=== PATIENT | female | born 1945 | race Caucasian/White ===

== ENCOUNTER 2018-01-12 13:27 | Emergency (ER) | payer MEDICARE, OTHER ==
--- NOTE | 2018-01-12 14:09 | ED Physician Documentation ---
PD HPI LOWER EXT INJURY - Stated complaint Stated Complaint: FT SWOLLEN - Chief complaint Chief Complaint: Ext Problem - History obtained from History obtained from: Patient - History of Present Illness PD HPI LOW EXT INJURY LOCATION: Both, Lower leg (has swelling and some cramping of both legs, and some pain left lower thigh. Had flown here couple weeks ago and flying home tomorrow. Concerned for DVT or heart failure.), Ankle Type of injury: No: Fall, Twist Timing - onset: How many weeks ago (1) Timing - duration: Weeks (1) Timing - details: Gradual onset Worsened by: No: Moving, Palpating Associated symptoms: Swelling. No: Weakness, Numbness Similar symptoms before: Has not had sx before (denies change in diet nor high salt foods.) Recently seen: Not recently seen Review of Systems Constitutional: denies: Fever, Chills Nose: denies: Rhinorrhea / runny nose, Congestion Throat: denies: Sore throat Cardiac: reports: Pedal edema, Calf pain (left thigh/calf). denies: Chest pain / pressure, Palpitations Respiratory: denies: Dyspnea (no orthopnea), Cough GI: denies: Abdominal Pain, Nausea, Vomiting, Diarrhea, Bloody / black stool : denies: Dysuria, Frequency Skin: denies: Rash, Lesions Musculoskeletal: denies: Back pain PD PAST MEDICAL HISTORY - Past Medical History Cardiovascular: Hypertension Endocrine/Autoimmune: HyPOthyroidism : None Psych: Depression - Past Surgical History Past Surgical History: Yes General: Cholecystectomy, Splenectomy Ortho: Knee replacement HEENT: Cataracts - Present Medications Home Medications: Ambulatory Orders Medication Instructions Recorded Confirmed Danazol 200 mg PO DAILY 10/12/14 10/19/15 Escitalopram [Lexapro] 10 mg PO DAILY 10/12/14 10/19/15 Levothyroxine [Synthroid] 25 mcg PO DAILY 10/12/14 10/19/15 Metoprolol Tartrate [Lopressor] 25 mg PO DAILY 10/12/14 10/12/14 Pramipexole [Mirapex] 1 mg PO TID 10/19/15 10/19/15 Carbidopa/Levodopa [Carbidopa-Levo 01/12/18 ER 25-100 Tab] DULoxetine [Cymbalta] 01/12/18 Furosemide [Lasix] 20 mg PO DAILY #5 tablet 01/12/18 Omeprazole 01/12/18 Potassium Chloride 10 meq PO DAILY #10 tablet.er 01/12/18 - Allergies Allergies/Adverse Reactions: Allergies Allergy/AdvReac Type Severity Reaction Status Date / Time aspirin Allergy Mild Nausea Verified 01/12/18 13:43 codeine Allergy Unknown Verified 10/12/14 13:26 naproxen sodium * Allergy Unknown Verified 10/12/14 13:26 [From Aleve] NSAIDS (Non-Steroidal Allergy Unknown Verified 10/12/14 13:26 Anti-Inflamma Penicillins Allergy Unknown Verified 10/12/14 13:26 rofecoxib [From Vioxx] Allergy Unknown Verified 10/12/14 13:26 Sulfa (Sulfonamide Allergy Unknown Verified 10/12/14 13:27 Antibiotics) anionophyllin Allergy Unknown Uncoded 10/12/14 13:28 nuts adn peanuts Allergy Unknown Uncoded 10/12/14 13:27 vit K Allergy Rash Uncoded 10/12/14 13:26 - Social History Does the pt smoke?: No Smoking Status: Never smoker Does the pt drink ETOH?: No Does the pt have substance abuse?: No - POLST Patient has POLST: No PD ED PE NORMAL - Vitals Vital signs reviewed: Yes - General General: Alert and oriented X 3, No acute distress, Well developed/nourished - HEENT HEENT: Pharynx benign - Neck Neck: Supple, no meningeal sign, No adenopathy, No JVD - Cardiac Cardiac: RRR, No murmur - Respiratory Respiratory: Clear bilaterally - Abdomen Abdomen: Soft, Non tender, Other (obese) - Back Back: No CVA TTP - Derm Derm: Normal color, Warm and dry - Extremities Extremities: No deformity, No tenderness to palpate, No calf tenderness / cord, Other (1+ edema to right leg, 2+ at left ankle. ) - Neuro Neuro: Alert and oriented X 3, No motor deficit, No sensory deficit, Normal speech Results - Vitals Vitals: Vital Signs - 24 hr 01/12/18 01/12/18 13:35 16:29 Temperature 36.7 C Heart Rate 106 H 97 Respiratory 18 16 Rate Blood Pressure 164/94 H 151/90 H O2 Saturation 100 98 Oxygen O2 Source Room air - Labs Labs: Laboratory Tests 01/12/18 01/12/18 01/12/18 14:30 14:30 14:30 WBC 7.3 RBC 4.27 Hgb 14.9 Hct 44.5 MCV 104.3 H MCH 35.0 H MCHC 33.5 RDW 14.9 Plt Count 260 MPV 8.7 Neut # (Auto) 5.4 Lymph # (Auto) 1.1 L [place] # (Auto) 0.6 Eos # (Auto) 0.2 Baso # (Auto) 0.1 Absolute Nucleated RBC 0.00 Nucleated RBC % 0.1 Sodium 140 Potassium 3.6 Chloride 103 Carbon Dioxide 29 Anion Gap 8.0 BUN 13 Creatinine 1.1 H Estimated GFR (MDRD) 49 L Glucose 125 H Calcium 9.6 Magnesium 1.7 Total Bilirubin 0.5 AST 38 ALT 22 Alkaline Phosphatase 60 B-Natriuretic Peptide 27 Total Protein 6.9 Albumin 3.7 Globulin 3.2 Albumin/Globulin Ratio 1.2 Lipase 41 - Rads (name of study) duplex both legs Radiology: Prelim report reviewed (no DVT) PD MEDICAL DECISION MAKING - ED course Complexity details: reviewed results (no DVT, BNP and Creatinine are good. Lytes are good, though low normal K. Will supplement K and give short course diuretic. To see PMD when back home. ), considered differential (consider renal insuff, CHF, DVT or just dependent edema. ), d/w patient - Sepsis Event Vital Signs: Vital Signs - 24 hr 01/12/18 01/12/18 13:35 16:29 Temperature 36.7 C Heart Rate 106 H 97 Respiratory 18 16 Rate Blood Pressure 164/94 H 151/90 H O2 Saturation 100 98 Oxygen O2 Source Room air Departure - Departure Disposition: 01 Home, Self Care Clinical Impression: Edema of both legs Condition: Stable Record reviewed to determine appropriate education?: Yes Instructions: ED Edema Legs Bilateral Prescriptions: Furosemide [Lasix] 20 mg PO DAILY #5 tablet Potassium Chloride 10 meq PO DAILY #10 tablet.er Comments: No signs of blood clots on ultrasound. Your basic blood tests appear okay. Presume there is just some fluid retention. We can treat this with an added potassium supplement and water pill (diuretic) over the next few days. Follow- up with your primary care at home if not improved. Discharge Date/Time: 01/12/18 16:30
[2018-01-12 14:34] LABS: BASOPHILS # (AUTO) 0.1 10^3/uL (0.0-0.1); BASOPHILS % (AUTO) 0.7 %; EOSINOPHILS # (AUTO) 0.2 10^3/uL (0.0-0.7); EOSINOPHILS % (AUTO) 3.2 %; HGB - HEMOGLOBIN 14.9 g/dL (12.0-16.0); LYMPHOCYTES # (AUTO) 1.1 10^3/uL (1.5-3.5); LYMPHOCYTES % (AUTO) 15.1 %; MEAN CORPUSCULAR HGB CONC 33.5 g/dL (32.0-36.0); MEAN CORPUSCULAR VOLUME 104.3 fL (81.0-99.0); MEAN PLATELET VOLUME 8.7 fL (7.9-10.8); MONOCYTES # (AUTO) 0.6 10^3/uL (0.0-1.0); MONOCYTES % (AUTO) 7.9 %; NEUTROPHILS # (AUTO) 5.4 10^3/uL (1.5-6.6); NEUTROPHILS % (AUTO) 73.1 %; PLT - PLATELET COUNT 260 10^3/uL (130-450); RED BLOOD COUNT 4.27 10^6/uL (4.20-5.40); RED CELL DISTRIBUTION WIDTH 14.9 % (12.0-15.0); WHITE BLOOD COUNT 7.3 x10^3/uL (4.8-10.8)
[2018-01-12 14:48] LABS: ALBUMIN 3.7 g/dL (3.2-5.5); ALBUMIN/GLOBULIN RATIO 1.2 (1.0-2.2); BILIRUBIN,TOTAL 0.5 mg/dL (0.2-1.0); CALCIUM 9.6 mg/dL (8.5-10.3); CREATININE 1.1 mg/dL (0.4-1.0); MAGNESIUM 1.7 mg/dL (1.7-2.8); TOTAL PROTEIN 6.9 g/dL (6.7-8.2)
--- NOTE | 2018-01-12 15:50 | Ultrasound Report ---
Procedure Date: 01/12/2018 Accession Number: [id number] / [id number] Procedure: US - Duplex Ext Veins Bilateral CPT Code: FULL RESULT: EXAM: BILATERAL LOWER EXTREMITY VENOUS ULTRASOUND EXAM DATE: 01/12/2018 03:36 PM. CLINICAL HISTORY: Leg edema; flew here December 28. COMPARISON: Right lower extremity venous ultrasound 10/19/2015. TECHNIQUE: Real-time sonographic vascular imaging was performed by the photoengraving photographer through the lower extremities utilizing both color-flow and Doppler spectral analysis. Multiple automotive sales representative static images were saved for review. FINDINGS: Right: Common Femoral Vein (CFV): Normal. CFV-GSV Junction: Normal. Profunda Femoral Vein (PFV): Normal. Femoral Vein (FV) Prox: Normal. Femoral Vein (FV) Mid: Normal. Femoral Vein (FV) Dist: Normal. Popliteal Vein: Normal. Posterior Tibial Veins: Normal. Peroneal Veins: Normal. Left: Common Femoral Vein (CFV): Normal. CFV-GSV Junction: Normal. Profunda Femoral Vein (PFV): Normal. Femoral Vein (FV) Prox: Normal. Femoral Vein (FV) Mid: Normal. Femoral Vein (FV) Dist: Normal. Popliteal Vein: Normal. Posterior Tibial Veins: Normal. Peroneal Veins: Normal. Other: None. IMPRESSION: No evidence for deep venous thrombosis bilaterally. RADIA
[2018-01-12] MEDS ORDERED: POTASSIUM BICARB 25 MEQ TABLET PO STA (16:02)
[2018-01-12] MEDS ORDERED: FUROSEMIDE 20 MG TABLET PO STA (16:02)
[2018-01-12 16:31] VITALS: BP 151/90
== END 2018-01-12 16:30 | disposition home or self-care (01) ==
LOC: ED 13:27
DX: R60.0 Localized edema (principal); I10 Essential (primary) hypertension; E03.9 Hypothyroidism, unspecified; Z96.659 Presence of unspecified artificial knee joint; Z90.81 Acquired absence of spleen
CPT/HCPCS: 36415; 80053; 83690; 83735; 83880; 85025; 93970; 99283; A9270

== ENCOUNTER 2019-03-15 20:36 | Emergency (ER) | payer MEDICARE, OTHER ==
[2019-03-15 22:59] VITALS: BP 126/58
--- NOTE | 2019-03-16 00:31 | ED Physician Documentation ---
History of Present Illness - Stated complaint Stated Complaint: BILAT LEG SWELLING/NUMB/FINGER NUMBNESS - Chief complaint Chief Complaint: Trauma Ext - History obtained from History obtained from: Patient, Family - History of Present Illness Timing: How many days ago (4) - Additonal information Additional information: 73-year-old female visiting [facility] for her mother's 98th birthday has developed swelling in both of her ankles. She states that she has called her primary care doctor back home has been prescribed some additional Lasix and this does not seem to be helping. When asked the question about where she is sleeping she is sleeping in chair and she is sleeping with her legs dependent. She has had similar issue the last time that she was visiting in the summer back in January of last year. Review of Systems Constitutional: denies: Fever Eyes: denies: Decreased vision Ears: denies: Ear pain Nose: denies: Congestion Throat: reports: Oral lesions / sores. 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 - Past Surgical History Past Surgical History: Yes General: Cholecystectomy, Gastric surgery, Splenectomy Ortho: Knee replacement HEENT: Cataracts - Present Medications Home Medications: Ambulatory Orders Medication Instructions Recorded Confirmed Escitalopram [Lexapro] 10 mg PO DAILY 10/12/14 10/19/15 Carbidopa/Levodopa [Carbidopa-Levo BID 01/12/18 ER 25-100 Tab] Furosemide [Lasix] 20 mg PO DAILY #5 tablet 01/12/18 RX: DULoxetine [Cymbalta] 30 mg PO DAILY 01/12/18 Esomeprazole Magnesium [Nexium] 03/15/19 Levocetirizine Dihydrochloride 03/15/19 [Xyzal] Mirabegron [Myrbetriq] 50 mg PO DAILY 03/15/19 03/15/19 Multivitamin/Iron/Folic Acid QPM 03/15/19 [Centrum Women Tablet] RX: Carvedilol 12.5 mg PO BID 03/15/19 03/15/19 RX: Levothyroxine [Synthroid] 88 mcg PO DAILY 03/15/19 03/15/19 RX: Pramipexole Di-HCl [Mirapex] 1 mg PO BID 03/15/19 03/15/19 RX: amLODIPine [Norvasc] 5 mg PO QPM 03/15/19 03/15/19 RX: Nystatin 400,000 unit PO TID #100 ml 03/16/19 - Allergies Allergies/Adverse Reactions: Allergies Allergy/AdvReac Type Severity Reaction Status Date / Time aspirin Allergy Mild Nausea Verified 03/15/19 21:22 codeine Allergy Unknown Verified 03/15/19 21:22 naproxen sodium * Allergy Unknown Verified 03/15/19 21:22 [From Aleve] NSAIDS (Non-Steroidal Allergy Unknown Verified 03/15/19 21:22 Anti-Inflamma Penicillins Allergy Unknown Verified 03/15/19 21:22 rofecoxib [From Vioxx] Allergy Unknown Verified 03/15/19 21:22 Sulfa (Sulfonamide Allergy Unknown Verified 03/15/19 21:22 Antibiotics) anionophyllin Allergy Unknown Uncoded 03/15/19 21:22 nuts adn peanuts Allergy Unknown Uncoded 03/15/19 21:22 vit K Allergy Rash Uncoded 03/15/19 21:22 - Social History Does the pt smoke?: No Smoking Status: Never smoker Does the pt drink ETOH?: No Does the pt have substance abuse?: No - Immunizations Immunizations are current?: Yes - POLST Patient has POLST: No PD ED PE NORMAL - Vitals Vital signs reviewed: Yes (normal ) - General General: Alert and oriented X 3, No acute distress, Well developed/nourished - HEENT HEENT: Atraumatic, PERRL, EOMI, Other (There are white patches on the posterior pharynx. ) - Neck Neck: Supple, no meningeal sign - Cardiac Cardiac: RRR, No murmur - Respiratory Respiratory: No respiratory distress, Clear bilaterally - Abdomen Abdomen: Normal bowel sounds, Soft, Non tender, Non distended, No organomegaly - Back Back: No CVA TTP, No spinal TTP - Derm Derm: Normal color, Warm and dry, No rash - Extremities Extremities: No deformity, Other (trace edema bilaterally with negative homans no palpable cord or tenderness to the posterior calves) - Neuro Neuro: Alert and oriented X 3, back wedger 2-12 intact, No motor deficit, No sensory deficit, Normal speech Eye Opening: Spontaneous Motor: Obeys Commands Verbal: Oriented GCS Score: 15 - Psych Psych: Normal mood, Normal affect Results - Vitals Vitals: Vital Signs - 24 hr 03/15/19 03/15/19 21:10 22:57 Temperature 36.2 C L 36.3 C L Heart Rate 75 79 Respiratory 18 16 Rate Blood Pressure 116/52 L 126/58 L O2 Saturation 97 95 Oxygen O2 Source Room air - Labs Labs: Laboratory Tests 03/16/19 03/16/19 00:40 00:40 WBC 11.1 H RBC 3.75 L Hgb 13.1 Hct 39.6 MCV 105.6 H MCH 34.9 H MCHC 33.1 RDW 15.1 H Plt Count 301 MPV 10.5 Neut # (Auto) 7.9 H Lymph # (Auto) 1.8 [place] # (Auto) 0.7 Eos # (Auto) 0.5 Baso # (Auto) 0.1 Absolute Nucleated RBC 0.00 Nucleated RBC % 0.0 Sodium 145 Potassium 3.4 L Chloride 102 Carbon Dioxide 32 Anion Gap 11.0 BUN 10 Creatinine 0.7 Estimated GFR (MDRD) 82 L Glucose 117 H Calcium 9.3 Total Bilirubin 0.5 AST 20 ALT < 10 L Alkaline Phosphatase 51 Total Protein 6.8 Albumin 3.6 Globulin 3.2 Albumin/Globulin Ratio 1.1 Lipase 32 PD MEDICAL DECISION MAKING - ED course Complexity details: reviewed old records, reviewed results, re-evaluated patient, considered differential, d/w patient, d/w family ED course: 73-year-old female with bilateral lower extremity edema that is not responding well to increased dose of Lasix has dependent edema and she has continued to have the dependent situation. Because of her Lasix ingestion we did do blood work on her and found her potassium to be minimally decreased. She is instructed to elevate her feet at least horizontal for sleep and take an additional dose of potassium. Departure - Departure Disposition: 01 Home, Self Care Clinical Impression: Dependent edema, Hypokalemia, Thrush Condition: Stable Instructions: Thrush Oral, ED Edema Legs Bilateral, ED Potassium Deficiency Follow-Up: Your, doctor [Other] Prescriptions: RX: Nystatin 400,000 unit PO TID #100 ml Discharge Date/Time: 03/16/19 01:31
[2019-03-16 00:57] LABS: BASOPHILS # (AUTO) 0.1 10^3/uL (0.0-0.1); EOSINOPHILS # (AUTO) 0.5 10^3/uL (0.0-0.7); EOSINOPHILS % (AUTO) 4.1 %; HGB - HEMOGLOBIN 13.1 g/dL (12.0-16.0); LYMPHOCYTES # (AUTO) 1.8 10^3/uL (1.5-3.5); LYMPHOCYTES % (AUTO) 16.5 %; MEAN CORPUSCULAR HEMOGLOBIN 34.9 pg (27.0-31.0); MEAN CORPUSCULAR HGB CONC 33.1 g/dL (32.0-36.0); MEAN CORPUSCULAR VOLUME 105.6 fL (81.0-99.0); MEAN PLATELET VOLUME 10.5 fL (7.9-10.8); MONOCYTES # (AUTO) 0.7 10^3/uL (0.0-1.0); MONOCYTES % (AUTO) 6.6 %; NEUTROPHILS # (AUTO) 7.9 10^3/uL (1.5-6.6); NEUTROPHILS % (AUTO) 71.2 %; PLT - PLATELET COUNT 301 10^3/uL (130-450); RED BLOOD COUNT 3.75 10^6/uL (4.20-5.40); RED CELL DISTRIBUTION WIDTH 15.1 % (12.0-15.0); WHITE BLOOD COUNT 11.1 x10^3/uL (4.8-10.8)
[2019-03-16 01:10] LABS: ALBUMIN 3.6 g/dL (3.2-5.5); ALBUMIN/GLOBULIN RATIO 1.1 (1.0-2.2); ALKALINE PHOSPHATASE 51 IU/L (42-121); ALT ALANINE AMINOTRANSFERASE < 10 IU/L (10-60); AST ASPARTATE AMINOTRANSFERASE 20 IU/L (10-42); BILIRUBIN,TOTAL 0.5 mg/dL (0.2-1.0); BUN - BLOOD UREA NITROGEN 10 mg/dL (6-20); CALCIUM 9.3 mg/dL (8.5-10.3); CARBON DIOXIDE - CO2 32 mmol/L (21-32); CHLORIDE 102 mmol/L (101-111); CREATININE 0.7 mg/dL (0.4-1.0); GFR - MDRD 82 (>89); GLUCOSE 117 mg/dL (70-100); LIPASE 32 U/L (22-51); SODIUM 145 mmol/L (135-145); TOTAL PROTEIN 6.8 g/dL (6.7-8.2)
== END 2019-03-16 01:31 | disposition home or self-care (01) ==
LOC: ED 20:36
DX: R60.0 Localized edema (principal); E87.6 Hypokalemia; B37.0 Candidal stomatitis; I10 Essential (primary) hypertension; Z85.72 Personal history of non-Hodgkin lymphomas
CPT/HCPCS: 36415; 80053; 83690; 85025; 99283